=== PATIENT | male | born 1930 | race Caucasian/White ===

== ENCOUNTER 2020-12-12 10:22 | Day surgery (SDC) | payer MEDICARE, OTHER ==
[2020-12-12] VITALS (8 sets, daily range): BP systolic 95–128; BP diastolic 30–67
[~2020-12-12] VITALS: Ht 180.3 cm; Wt 103.5 kg
[2020-12-12] MEDS ORDERED: ceFAZolin 2gm in dextrose, iso 50 ML IV ONE ×2 (11:05→13:08)
[2020-12-12] MEDS ORDERED: VANCOMYCIN 1,500MG inj. 1,500 MG in normal saline 500ml IV soln 300 ML IV ONE (11:05)
[2020-12-12] MEDS ORDERED: normal saline 1000ml 1,000 ML IV SCH ×2 (11:10→14:40)
[2020-12-12] MEDS ORDERED: FINA5TAB11 PO (11:47)
[2020-12-12] MEDS ORDERED: CARV3.122 PO (11:47)
[2020-12-12] MEDS ORDERED: FURO40TA4 PO (11:47)
[2020-12-12] MEDS ORDERED: SITA1TBM7 PO (11:47)
[2020-12-12] MEDS ORDERED: FLO0.4C PO (11:47)
[2020-12-12] MEDS ORDERED: LINA145C PO (11:47)
[2020-12-12] MEDS ORDERED: GLIM4TAB7 PO (11:53)
[2020-12-12] MEDS ORDERED: NITR0.4T48 SL (11:53)
[2020-12-12] MEDS ORDERED: DOCU240C26 PO (11:53)
[2020-12-12] MEDS ORDERED: ASPI-611 PO (11:53)
[2020-12-12] MEDS ORDERED: LOSA50TA64 PO (11:53)
[2020-12-12] MEDS ORDERED: ATOR80TA PO (11:53)
[2020-12-12] MEDS ORDERED: fentaNYL/PF 50MCG/1 ML 2ML syringe ONE (13:08)
[2020-12-12] MEDS ORDERED: ceFAZolin 1000mg inj ONE (13:08)
[2020-12-12] MEDS ORDERED: midazolam 2 mg/2 ml injection ONE ×2 (13:08→13:09)
[2020-12-12] MEDS ORDERED: LIDOcaine 1% W/epiNEPHrine 1:100,000 20ml vial ONE (13:08)
[2020-12-12 13:47] LABS: BASOPHILS % (AUTO) 0.4 % (0-1); EOSINOPHILS # (AUTO) 0.1 X10'3 (0-0.9); HEMATOCRIT 35.5 % (42.0-52.0); HEMOGLOBIN 11.8 g/dl (14.0-17.9); LYMPHOCYTES # (AUTO) 1.3 X10'3 (1.1-4.8); LYMPHOCYTES % (AUTO) 18.2 % (21-51); MEAN CORPUSCULAR HEMOGLOBIN 28.9 PG (27.0-31.0); MEAN CORPUSCULAR HGB CONC 33.1 g/dL (33.0-36.5); MEAN CORPUSCULAR VOLUME 87.1 FL (78-98); MEAN PLATELET VOLUME 8.1 FL (7.4-10.4); MONOCYTES # (AUTO) 0.6 X10'3 (0-0.9); MONOCYTES % (AUTO) 7.8 % (2-12); NEUTROPHILS # (AUTO) 5.3 X10'3 (1.8-7.7); NEUTROPHILS % (AUTO) 71.6 % (42-75); PLATELET COUNT 134 X10'3 (140-440); RED BLOOD COUNT 4.08 X10'6 (4.70-6.10); RED CELL DISTRIBUTION WIDTH 14.2 % (11.5-14.5); WHITE BLOOD COUNT 7.4 X10'3 (4.5-11.0)
[2020-12-12 14:03] LABS: ALBUMIN 3.2 G/DL (3.4-5.0); ANION GAP 5 (8-16); BLOOD UREA NITROGEN 31 MG/DL (7-18); BUN/CREATININE RATIO 18.1 (5.4-32.0); CALCIUM 8.9 MG/DL (8.5-10.1); CHLORIDE 106 MMOL/L (99-107); CREATININE 1.71 MG/DL (0.60-1.10); GLUCOSE 133 MG/DL (70-104); MAGNESIUM 2.2 MG/DL (1.5-2.4); POTASSIUM 4.2 MMOL/L (3.5-5.1); SODIUM 143 MMOL/L (135-145); TOTAL CARBON DIOXIDE 32.5 MMOL/L (24-32); eGFR 38 ML/MIN
== END 2020-12-12 16:48 | disposition home or self-care (01) ==
LOC: SSTAY O 10:22
PROVIDERS: ATTEND Internal Medicine Cardiovascular Disease
DX: Z45.010 Encounter for checking and testing of cardiac pacemaker pulse generator [battery] (principal); I44.2 Atrioventricular block, complete; I49.5 Sick sinus syndrome; I35.0 Nonrheumatic aortic (valve) stenosis; Z79.899 Other long term (current) drug therapy
CPT/HCPCS: 33228; 36415; 80048; 82948; 83735; 85025; 85610; 93005; 99152; C1785; C1894; J0690; J2250; J3010; J3370; J7030; J7040; A4620